=== PATIENT | male | born 1955 | race Caucasian/White ===

== ENCOUNTER 2022-07-30 16:36 | Emergency (ER) | payer MEDICARE, SELFPAY ==
[2022-07-30 17:00] VITALS: BP 152/79; PULSE 80; RESP 17; TEMP 36.9; O2SAT 97; BMI 26.8
--- NOTE | 2022-07-30 17:35 | EXP.UTC ---
Discharge Plan Disposition Patient Disposition: Home, Self-Care Condition: Good Prescriptions Prescriptions: New doxycycline hyclate 100 mg capsule 100 mg PO BID 7 Days Qty: 14 0RF fluticasone propionate [Flonase Allergy Relief] 50 mcg/actuation spray,suspension 1 spray intranasal DAILY Qty: 16 0RF Rx Instructions: administer into each nostril daily Referrals Follow up/Referrals: Karen Simeon [Primary Care Provider] - See instructions Activity Restrictions/Add. Instructions Additional Instructions/Restrictions: *Monitor Temp, Over the counter Motrin or Tylenol as directed/as needed Tylenol every 4 hours and Motrin every 6 hours (as long as your family doctor has told you that you can take it) for fever or pain. and straight to ER if unable to lower temp less than 101.0 after medication given *Warm salt water gargles may help to soothe the throat *Throat Lozenges? *Warm fluids like tea with honey may help to soothe the throat? *Sleep elevated *Humidifier/Vaporizer Take antibiotics Follow up IMMEDIATELY for new or worsening symptoms or no Noticeable improvement over the next 48-72 hours. 911 for difficulty breathing or swallowing Drink extra fluids with and between meals. If you have difficulty drinking, try very small amounts of water or suck on ice chips. ? Avoid fruit juices, as these do not replace minerals and can actually increase diarrhea. ? Children and adults can use sports drinks to replenish electrolytes. Younger children and infants should use products formulated for children, like oral rehydration solutions. ? Eat food in small amounts and let your stomach recover. ? Get lots of rest. You may feel tired or weak. ? No greasy or fried foods for the next 24-48 hours BRAT diet Bananas Rice Apples and [place] ? Make sure to drink plenty of liquids ? Return if needed ? Straight to ER if any life threatening symptoms ? Follow up with family doctor in the next 48-72 hours if no improvement or any worsening of symptoms Clinical Impressions Clinical Impression: Sinusitis Instructions Patient Instructions: DI for Sinusitis, Sinusitis, Doxycycline Discharge ED Provider: Lanie Chun [facility] General Stated complaint: Diarrhea,fever,Bodyaches,sore throat,chills Mode of Arrival: Ambulatory Source of Information: Patient Limitations: No Limitations Time Seen by Provider: 07/30/22 17:35 Description of Symptoms (Recalled from Triage Doc. by RN): PATIENT C/O DIARRHEA, COUGH, CHILLS, AND SWEATS X 5 DAYS HEENT Symptoms (Recalled from RN notes): No Resp Symptoms (Recalled from RN notes): Yes Skin Symptoms (Recalled from RN notes): No MS Symptoms (Recalled from RN notes): No Functional Status (Recalled from RN notes): WNL History of Present Illness Provider Complaint: Patient states that he has been sick for about 5 days States that he started with sinus congestion and pressure and cough States that since then his sinus congestion as got worse and he has been feeling like he is having low grade fever States then this morning he woke up with diarrhea feels like eh sweats bad when his fever breaks wanting to get tested for the flu Related Data Previous Rx's Medication Instructions Recorded doxycycline hyclate 100 mg capsule 100 mg PO BID 7 days #14 caps 07/30/22 fluticasone propionate 50 1 spray intranasal DAILY #16 grams 07/30/22 mcg/actuation nasal spray,suspension (Flonase Allergy Relief) Allergies Allergy/AdvReac Type Severity Reaction Status Date / Time No Known Allergies Allergy Verified 07/30/22 17:19 Worker's Comp Is this a Worker's Comp case?: No PFSH [facility] Disclaimer: The information contained in this section may have been updated after the patient was seen, as this information can be updated by other users. Social History Smoking Status: Unknown if ever smoked alcohol intake
[2022-07-30 17:58] VITALS: BP 152/79; PULSE 80; RESP 17; TEMP 36.9; O2SAT 97
== END 2022-07-30 18:04 | disposition home or self-care (01) ==
PROVIDERS: Emergency Provider Nurse Practitioner; PCP Emergency Medicine
DX: J01.90 Acute sinusitis, unspecified (principal); R19.7 Diarrhea, unspecified; R50.9 Fever, unspecified
CPT/HCPCS: 99204; 99212; 99214; G0463

== ENCOUNTER 2022-10-10 12:16 | Emergency (ER) | payer MEDICARE, SELFPAY ==
[2022-10-10 12:16] VITALS: BP 156/76; PULSE 69; RESP 16; TEMP 36.7; O2SAT 96; BMI 25.8
--- NOTE | 2022-10-10 12:19 | HMH.EDGENADL ---
Discharge Plan Disposition Patient Disposition: Home, Self-Care Condition: Fair Prescriptions Prescriptions: New prednisone 20 mg tablet 60 mg PO DAILY 4 Days Qty: 12 0RF cyclobenzaprine 10 mg tablet 10 mg PO TID PRN (Reason: muscle spasm) Qty: 14 0RF meloxicam 7.5 mg tablet 7.5 mg PO DAILY Qty: 14 0RF diclofenac sodium [Voltaren Arthritis Pain] 1 % gel 4 g topical QID Qty: 100 0RF Rx Instructions: apply to single knee, ankle, foot; for foot includes sole/toes/top of foot No Action clopidogrel 75 mg tablet 75 mg PO DAILY clotrimazole-betamethasone 1-0.05 % cream 1 applic topical BID Label Comments: APPLY 1 application topically to affected area 2 times per day for rash furosemide 40 mg tablet 40 mg PO DAILY Label Comments: TAKE ONE TABLET BY MOUTH DAILY FOR FLUID amitriptyline 25 mg tablet 25 mg PO HS metoprolol tartrate 50 mg tablet 50 mg PO BID Label Comments: TAKE 1 tablet 2 times per day with food pravastatin 40 mg tablet 40 mg PO HS Label Comments: TAKE ONE TABLET BY MOUTH EVERY DAY gabapentin 800 mg tablet 800 mg PO TID ranolazine 1,000 mg tablet extended release 12 hr 1,000 mg PO BID Label Comments: take 1 tablet by mouth 2 times per day nitroglycerin 0.4 mg tablet, sublingual 0.4 mg sublingual PRN hydrocodone-acetaminophen 7.5-325 mg tablet See Rx Instructions .ROUTE .COMPLEX PRN (Reason: pain) Qty: 30 0RF Rx Instructions: 1/2 po bid prn pain PRN; clobetasol [Temovate] 0.05 % ointment 1 applic topical BID Qty: 45 1RF esomeprazole magnesium 40 mg capsule,delayed release(DR/EC) 40 mg PO DAILY Qty: 90 3RF fluticasone propionate [Flonase Allergy Relief] 50 mcg/actuation spray,suspension 1 spray intranasal DAILY Qty: 16 0RF Rx Instructions: administer into each nostril daily Referrals Follow up/Referrals: Paul Hernadez [Referring] - See instructions Clinical Impressions Clinical Impression: Lumbar disc herniation with radiculopathy Instructions Patient Instructions: DI for Acute Pain -- Adult Print Language Print Language: Tunisian Discharge ED Provider: Edwardo Gonzalez General Adult HPI General Chief complaint: PAIN Stated complaint: lower back pain, R hip pain Time Seen by Provider: 10/10/22 15:28 History of Present Illness HPI narrative: Patient presents to the emergency department with right hip pain. The patient states he has a long history of low back pain. He was seen approximately a month ago at [facility] where he had a series of x-rays of his back. He states that he was discharged home. He states that over the last 2 to 3 days he has significantly worsened with inability to ambulate without excruciating pain. He states he is unable to put any pressure on his right leg. States that the pain stops at his hip. Denies any bowel or bladder loss or retention. Denies any numbness or tingling. Related Data Home Medications Medication Instructions Recorded Confirmed amitriptyline 25 mg tablet 25 mg PO HS 09/18/22 09/18/22 clopidogrel 75 mg tablet 75 mg PO DAILY 09/18/22 09/18/22 clotrimazole-betamethasone 1 1 applic topical BID 09/18/22 09/18/22 %-0.05 % topical cream furosemide 40 mg tablet 40 mg PO DAILY 09/18/22 09/18/22 gabapentin 800 mg tablet 800 mg PO TID 09/18/22 09/18/22 metoprolol tartrate 50 mg tablet 50 mg PO BID 09/18/22 09/18/22 nitroglycerin 0.4 mg sublingual 0.4 mg sublingual PRN 09/18/22 09/18/22 tablet pravastatin 40 mg tablet 40 mg PO HS 09/18/22 09/18/22 ranolazine 1,000 mg 1,000 mg PO BID 09/18/22 09/18/22 tablet,extended release,12 hr Previous Rx's Medication Instructions Recorded fluticasone propionate 50 1 spray intranasal DAILY #16 grams 07/30/22 mcg/actuation nasal spray,suspension (Flonase Allergy Relief) clobetasol 0.05 % topical ointment 1 applic topical BID #45 grams 0
--- NOTE | 2022-10-10 12:21 | PC.NURSE ---
[place] at
--- NOTE | 2022-10-10 12:24 | CT_ITS ---
FINAL REPORT TECHNIQUE: Axial imaging of the lumbar spine was obtained without contrast. Sagittal and coronal reformatted images were also obtained and reviewed.This study was performed with techniques to keep radiation doses as low as reasonably achievable (ALARA). Individualized dose reduction techniques using automated exposure control or adjustment of mA and/or kV according to the patient's size were employed. CLINICAL HISTORY: low back pain, right leg pain, unable to ambulate COMPARISON: None FINDINGS: There is no fracture. There is mild retrolisthesis of L2 on L3 and L3 on L4. There is no evidence of significant central canal stenosis. L1-2: Annular disc bulge. Vertebral osteophytes. Mild bilateral neural foraminal narrowing. L2-3: Annular disc bulge, facet arthropathy, and osteophytes. Moderate bilateral neural foraminal narrowing. L3-4: Annular disc bulge, facet arthropathy, and osteophytes. Moderate bilateral neural foraminal narrowing. L4-5: Annular disc bulge and facet arthropathy. Severe bilateral neural foraminal narrowing. Right paracentral inferiorly extruded disc. Right L5 nerve root impingement. Right lateral recess stenosis. L5-S1: Insert bulge plus severe right and moderate left neural foraminal narrowing. Left L5 pars defects. IMPRESSION: Left L5 pars defects. Right paracentral inferiorly extruded disc at L4-5 with nerve root impingement. Degenerative disc disease at other levels as described. Reviewed, Interpreted and Dictated by Compa Gaytan III, MD Transcribed by Irlanda España Authenticated and [facility]
--- NOTE | 2022-10-10 12:25 | XR_ITS ---
FINAL REPORT CLINICAL HISTORY: right hip pain COMPARISON: None FINDINGS: SINGLE VIEW PELVIS: A single view of the pelvis was obtained. There is no acute fracture or dislocation. Visualized joint spaces are normally aligned. Mild degenerative changes are noted. There are vascular calcifications. IMPRESSION: No acute bony abnormality. Reviewed, Interpreted and Dictated by Compa Gaytan III, MD Transcribed by Irlanda España Authenticated and [facility]
[2022-10-10 15:39] VITALS: BP 147/80; PULSE 74; RESP 16; TEMP 36.6; O2SAT 97
== END 2022-10-10 15:52 | disposition home or self-care (01) ==
PROVIDERS: Emergency Provider Emergency Medicine; PCP Family Medicine
DX: M51.16 Intervertebral disc disorders with radiculopathy, lumbar region (principal); M25.551 Pain in right hip; F17.210 Nicotine dependence, cigarettes, uncomplicated
CPT/HCPCS: 72131; 72170; 96372; 99284

== ENCOUNTER → 2022-11-08 17:23 | Outpatient (CLI) | payer MEDICARE, SELFPAY ==
--- NOTE | 2022-11-08 17:27 | MR_ITS ---
PROCEDURE INFORMATION: Exam: MR Lumbar Spine Without Contrast Exam date and time: 11/08/2022 5:30 PM Age: 67 years old Clinical indication: Pain; Lumbago with sciatica; Right; Additional info: Lumbar radiculopathy. Right leg pain x 4 weeks. TECHNIQUE: Imaging protocol: Magnetic resonance imaging of the lumbar spine without contrast. COMPARISON: CT LUMBAR SPINE WO CON 10/10/2022 12:47 PM FINDINGS: Bones/joints: There is preservation of vertebral alignment. Vertebral body heights are maintained. STIR hyperintensity along the posterior elements at L5, likely active degeneration. No marrow replacing process. Spinal cord: Conus medullaris and cauda equina nerve roots are unremarkable Nerves: There is a focal T2 hyperintense structure adjacent to the right neural foramen at T11-T12, favored to represent a perineural cyst. L1-L2: Diffuse disc bulge and facet arthropathy noted. No significant spinal canal stenosis. There is no significant neural foraminal narrowing. L2-L3: Diffuse disc bulge and facet arthropathy noted. There is mild spinal canal stenosis. Lateral recesses are narrowed bilaterally. There is moderate bilateral neural foraminal narrowing. L3-L4: Diffuse disc bulge and facet arthropathy noted. Lateral recesses are narrowed bilaterally. There is moderate bilateral neural foraminal narrowing. L4-L5: Diffuse disc bulge and facet arthropathy noted. There is a caudally migrated disc extrusion encroaching on traversing right L5 nerve root.There is mild spinal canal stenosis. There is severe bilateral neural foraminal narrowing. L5-S1: Diffuse disc bulge and facet arthropathy noted. No significant spinal canal stenosis. Disc bulge is likely contacting on exiting right L5 nerve root. There is moderate bilateral neural foraminal narrowing. Soft tissues: Unremarkable. IMPRESSION: Multilevel degenerative changes more pronounced at L4-L5 where there is a caudally migrated disc extrusion encroaching on traversing right L5 nerve root. Diffuse disc bulge at L5-S1 is likely contacting on exiting right L5 nerve root. Varying degrees of neural foramina narrowing more pronounced at L3-L4, L4-L5 and L5-S1 levels.
== END ==
LOC: RAD 17:23
PROVIDERS: PCP Family Medicine; Visit Provider Orthopaedic Surgery
DX: M54.50 Low back pain, unspecified (principal); M54.16 Radiculopathy, lumbar region
CPT/HCPCS: 72148; 76376

== ENCOUNTER 2022-12-07 11:15 | Emergency (ER) | payer MEDICARE, SELFPAY ==
[2022-12-07 11:19] VITALS: BP 143/96; PULSE 115; O2SAT 96
[2022-12-07 11:23] VITALS: BP 143/96; PULSE 114; RESP 16; TEMP 36.8; O2SAT 97; BMI 26.6
--- NOTE | 2022-12-07 11:28 | XR_ITS ---
FINAL REPORT CLINICAL HISTORY: injury FINDINGS: 3 views of the right shoulder were obtained. There is no prior exam for comparison. There is no fracture or dislocation. There is degenerative joint disease. The humeral head is high riding, a rotator cuff tear is not excluded. Soft tissues are normal. IMPRESSION: No acute osseous abnormality of the right shoulder. High riding humeral head, rotator cuff tear is not excluded. Consider MRI. Reviewed, Interpreted and Dictated by Laure Bah MD Transcribed by Alan Abraham Authenticated and [facility]
[2022-12-07 11:30] VITALS: BP 131/95; PULSE 111; O2SAT 96
[2022-12-07 12:00] VITALS: BP 122/89; PULSE 115; O2SAT 95
[2022-12-07 12:11] VITALS: BP 122/80; PULSE 109; O2SAT 94
[2022-12-07 12:13] VITALS: BP 122/80; PULSE 109; RESP 18; TEMP 36.7; O2SAT 95
--- NOTE | 2022-12-07 15:46 | HMH.EDGENADL ---
Discharge Plan Disposition Patient Disposition: Home, Self-Care Prescriptions Prescriptions: No Action clopidogrel 75 mg tablet 75 mg PO DAILY clotrimazole-betamethasone 1-0.05 % cream 1 applic topical BID Patient Comments: APPLY 1 application topically to affected area 2 times per day for rash amitriptyline 25 mg tablet 25 mg PO HS pravastatin 40 mg tablet 40 mg PO HS Patient Comments: TAKE ONE TABLET BY MOUTH EVERY DAY ranolazine 1,000 mg tablet extended release 12 hr 1,000 mg PO BID Patient Comments: take 1 tablet by mouth 2 times per day nitroglycerin 0.4 mg tablet, sublingual 0.4 mg sublingual PRN clobetasol [Temovate] 0.05 % ointment 1 applic topical BID Qty: 45 1RF methylprednisolone [Medrol (Jace)] 4 mg tablets,dose pack See Rx Instructions PO PER PKG DIR Qty: 21 0RF Rx Instructions: PO PER PKG DIR oxycodone-acetaminophen [Percocet] 5-325 mg tablet 1 tab PO Q8H PRN (Reason: pain) Qty: 45 0RF esomeprazole magnesium 40 mg capsule,delayed release(DR/EC) 40 mg PO DAILY Qty: 90 3RF furosemide 40 mg tablet See Rx Instructions .ROUTE .COMPLEX Qty: 90 1RF Dose Instruction: TAKE ONE TABLET BY MOUTH DAILY FOR FLUID Rx Instructions: TAKE ONE TABLET BY MOUTH DAILY FOR FLUID gabapentin 800 mg tablet 800 mg PO TID PRN (Reason: pain) Qty: 90 0RF hydrocodone-acetaminophen 7.5-325 mg tablet 1 tab PO Q8H PRN (Reason: pain) Qty: 60 0RF metoprolol tartrate 50 mg tablet 50 mg PO BID Qty: 60 0RF fluticasone propionate [Flonase Allergy Relief] 50 mcg/actuation spray,suspension 1 spray intranasal DAILY Qty: 16 0RF Rx Instructions: administer into each nostril daily cyclobenzaprine 10 mg tablet 10 mg PO TID PRN (Reason: muscle spasm) Qty: 14 0RF diclofenac sodium [Voltaren Arthritis Pain] 1 % gel 4 g topical QID Qty: 100 0RF Rx Instructions: apply to single knee, ankle, foot; for foot includes sole/toes/top of foot Referrals Follow up/Referrals: Gonzalo Elaine DO [Staff Physician] - See instructions (next available for outpatient MRI ) Dex Garza MD [Primary Care Provider] - See instructions Activity Restrictions/Add. Instructions Additional Instructions/Restrictions: Your x-ray today did not demonstrate any fracture or dislocation but was consistent with arthritis. Your exam is concerning for a rotaor cuff injury. I recommend an outpatient MRI please follow-up with your orthopedic surgeon or with Dr. Elaine to facilitate this. Continue take your pain medicine that you are currently taking for your back pain. Additionally may ice the area. Clinical Impressions Clinical Impression: Right shoulder strain, Arthritis of shoulder Discharge ED Provider: Leodan Dupree General Adult HPI General Chief complaint: Extremity Injury, Upper Stated complaint: RT shoulder pain Time Seen by Provider: 12/07/22 12:02 Mode of Arrival: Ambulatory Source of Information: Patient Limitations: No Limitations Description of Symptoms (Recalled from ER Triage Doc. by RN): Presents via POV d/t right shoulder injury while attempting to tighten his belt on Saturday. Pt further reports he heard a pop with immediate pain and limited ROM. Hx of rotator cuff tear x 7 yrs ago without intervention. +Lortab 7.5mg TID (prescribed by Dr. Garza for acute back pain due to pinched nerve with upcoming scheduled surgery Dec 3) History of Present Illness HPI narrative: Patient is a 67-year-old male who sustained a right shoulder injury while attempting to tighten his belt. He heard a pop in his right shoulder. No other significant injuries. Related Data Home Medications Medication Instructions Recorded Confirmed amitriptyline 25 mg tablet 25 mg PO HS 09/18/22 11/08/22 clopidogrel 75 mg tablet 75 mg PO DAILY 09/18/22 11/08/22 clotrimazole-betamethasone 1 1 applic topical BID 09/18/22 11/08/22 %-0.05 % topical cre
== END 2022-12-07 12:17 | disposition home or self-care (01) ==
PROVIDERS: Emergency Provider Student in an Organized Health Care Education/Training Program; PCP Family Medicine
DX: S46.011A Strain of muscle(s) and tendon(s) of the rotator cuff of right shoulder, initial encounter (principal); M19.011 Primary osteoarthritis, right shoulder; I10 Essential (primary) hypertension; E78.5 Hyperlipidemia, unspecified; I25.2 Old myocardial infarction; K21.9 Gastro-esophageal reflux disease without esophagitis; X50.9XXA Other and unspecified overexertion or strenuous movements or postures, initial encounter
CPT/HCPCS: 73030; 99283

== ENCOUNTER → 2022-12-17 11:30 | Outpatient (CLI) | payer MEDICARE, SELFPAY ==
--- NOTE | 2022-12-17 11:30 | NM_ITS ---
APPROVED REPORT Exam: Nuclear Stress Test Indication: CAD, 4 STENTS, H/O MT, HTN, HYPERLIPIDEMIA, TOB USE, SOB, FATIGUE Patient Location: Outpatient Stress Tech: Heidy Poole [place] Tech:TOD Barr RT (R)(N)(M) Ht: 5 ft 10 in Wt: 170 lbs HR: 68 bpm BP: 144/82 mmHg BSA: 1.95 m2 Rhythm: NSR TID: 1.10 BMI: 24.3 History: CAD, 4 STENTS, H/O MT, HTN, HYPERLIPIDEMIA, TOB USE, SOB, FATIGUE Procedure: Patient received 0.4 mg of intravenous Lexiscan, resting heart rate 68 bpm, resting blood pressure 144/82 mmHg, with Lexiscan maximum heart rate achieved was 87 bpm which is % of the maximum predicted heart rate and blood pressure was 124/75 mmHg. With Lexiscan, patient denied any complaint of chest pain. Cardiac Stress and Resting SPECT Images: Cardiac Stress and Resting SPECT images were obtained using technetium 99m Myoview 31.5 mCi stress and 10.07 mCi at rest. Resting and stress perfusion imaging in both supine and prone positions demonstrate a large sized, severe, fixed perfusion defect in the distal anterior, septal, and entire inferior and inferoseptal LV wall. There is also severe fixed perfusion defect in the apical LV wall. Gated imaging demonstrates mild reduction in global LV systolic function. There is moderate hypokinesis in the distal anterior, septal, and basal to mid inferior LV teran. There is akinesis of the apical wall. LVEF is calculated at 42%. Conclusion: Resting and stress perfusion imaging in both supine and prone positions demonstrate a large sized, severe, fixed perfusion defect in the distal anterior, septal, and entire inferior and inferoseptal LV wall. There is also severe fixed perfusion defect in the apical LV wall. No evidence of reversible ischemia. Gated imaging demonstrates mild reduction in global LV systolic function. There is moderate hypokinesis in the distal anterior, septal, and basal to mid inferior LV teran. There is akinesis of the apical wall. LVEF is calculated at 42%. Electronically signed by : Natalia Verma, 12/18/2022 20:25:42
--- NOTE | 2022-12-17 14:21 | CA_ITS ---
APPROVED REPORT Exam: Pharmacologic Technologist: Heidy Poole Ht: 5 ft 9 in Wt: 170 lbs BSA: 1.93 m2 HR: 68 bpm BP: 144/82 mmHg Rhythm: NSR Indications: Chest pain, Shortness of Air Medical History Medications: Gabapentin,,,,, Metoprolol Tartrate,,,,, Flonase,,,,, PERCOCET,,,,, CloPIdogrel,,,,, Diclofenac,,,,, AmiTRIPTYLINE,,,,, Esomeprazole,,,,, Cyclobenzaprine,,,,, Nitroglycerin,,,,, Ranolazine,,,,, Hydrocodone-Acetaminophen,,,,, Stress Test Details Test: LEXISCAN HR Resting HR: 72 bpm Max Heart Rate (APMHR): 151 bpm Max HR Achieved: 88 bpm Target HR (85% APMHR): 128 bpm % of APMHR: 58 Recovery HR: 83 bpm BP Resting BP: 144.0/82.0 mmHg Max BP: 144.0/82.0 mmHg Recovery BP: 144.0/78.0 mmHg ECG Resting ECG: Normal sinus rhythm, old septal WA Stress ECG: No change Arrhythmia: None Recovery ECG: No change Recovery Arrhythmia: None Clinical Exercise duration: 04:00 min Highest Stage Achieved: Stress ECG Conclusion Symptoms: Mild stomach discomfort. Arrhythmias/Ectiopy: None ST-T Changes: No significant changes. Conclusion: Unremarkable Lexiscan stress. Myoview images reported separately. Test Summary REST . . . . . . . Resting REST 05:28 . . 72 . 144/ 82 . . Stage 1 . . . . . . . Myoview Injected Stage 1 01:00 . . 76 . . . . Stage 2 01:00 . . 87 . 124/ 75 . . Stage 3 01:00 . . 85 . 143/ 79 . . Stage 4 01:00 . . 84 . 138/ 81 . Stop exercise at 04:00 RECOVERY 01:00 . . 84 . 140/ 80 . . RECOVERY 02:00 . . 83 . 138/ 81 . . RECOVERY 03:00 . . 80 . 144/ 78 . . RECOVERY 03:15 . . 82 . 144/ 78 . . Electronically signed by : Natalia Verma, 12/18/2022 20:21:00
== END ==
LOC: RAD 11:30
PROVIDERS: PCP Family Medicine; Visit Provider Internal Medicine
DX: I10 Essential (primary) hypertension (principal); I25.10 Atherosclerotic heart disease of native coronary artery without angina pectoris; R94.31 Abnormal electrocardiogram [ECG] [EKG]; Z95.5 Presence of coronary angioplasty implant and graft
CPT/HCPCS: 78452; 93017; A9502; J2785

== ENCOUNTER → 2022-12-31 08:05 | Outpatient (CLI) | payer MEDICARE, SELFPAY ==
--- NOTE | 2022-12-31 08:08 | CA_ITS ---
FINAL REPORT TECHNIQUE: Grayscale, color Doppler and duplex Doppler ultrasound of the kidneys, aorta and renal arteries was performed. Multiple velocities were measured. CLINICAL HISTORY: HTN,SMOKER COMPARISON: None FINDINGS: Aorta velocity: 93 cm/sec Right kidney: 10.0 cm. No evidence of hydronephrosis or mass. Right intrarenal RI: 0.53-0.68 Right renal artery velocity: 159 cm/sec. Right RAR (Renal artery-Aortic Ratio): 1.71 Left Kidney: 11.5 cm. No evidence of hydronephrosis or mass. Left intrarenal RI: 0.61-0.67 Left renal artery velocity: 168 cm/sec. Left RAR (Renal Artery-Aortic Ratio): 1.81 IMPRESSION: No evidence of significant renal artery stenosis. CT angiogram or postcontrast MR angiogram would be more sensitive for evaluation of possible renal artery stenosis. Reviewed, Interpreted and Dictated by Compa Gaytan III, MD Transcribed by Irlanda España Authenticated and . [facility]
--- NOTE | 2022-12-31 08:43 | US_ITS ---
FINAL REPORT TECHNIQUE: Ultrasound images of the kidneys and bladder were obtained. CLINICAL HISTORY: .hypertension COMPARISON: None FINDINGS: The right kidney measures 8.3 cm in length. It is normal in echogenicity. There is a 1.8 cm probable cyst in the mid right kidney. There are several small echogenic foci that may represent right renal stones as well. There is no hydronephrosis. The left kidney measures 11 cm in length. It is normal in echogenicity. There is no hydronephrosis. IMPRESSION: 1.8 cm probable cyst in the right mid kidney. There are several small echogenic foci that may represent small right renal stones as well. No evidence of hydronephrosis is seen. Would recommend CT using renal stone protocol for further evaluation. Unremarkable left kidney. Reviewed, Interpreted and Dictated by Compa Gaytan III, MD Transcribed by Milagros Busch Authenticated and . [facility]
== END ==
PROVIDERS: PCP Family Medicine; Visit Provider Internal Medicine
DX: I10 Essential (primary) hypertension (principal); I25.10 Atherosclerotic heart disease of native coronary artery without angina pectoris; R94.31 Abnormal electrocardiogram [ECG] [EKG]; Z95.5 Presence of coronary angioplasty implant and graft
CPT/HCPCS: 76770; 93976

== ENCOUNTER → 2023-01-09 11:14 | Outpatient (CLI) | payer MEDICARE, SELFPAY ==
--- NOTE | 2023-01-09 11:14 | MR_ITS ---
FINAL REPORT CLINICAL HISTORY: right shoulder pain COMPARISON: None FINDINGS: Multi planar MR imaging of the right shoulder was performed. There is complete disruption and proximal retraction of the distal supraspinatus tendon, approximately 3.9 cm. The humeral head is slightly elevated in the joint space. There is heterogeneous thickening of the distal subscapularis tendon, compatible with tendinosis. There is fluid in the subacromial/subdeltoid bursa. The anterior and posterior glenoid winsome appear intact. There is mild thinning of the long head of the biceps tendon as well as medial subluxation. There is marked heterotrophic change of the acromioclavicular joint. IMPRESSION: Complete tear and proximal retraction of the distal supraspinatus tendon as described. There is also tendinosis of the distal subscapularis tendon. Marked heterotrophic change of the acromioclavicular joint. There is mild thinning and medial subluxation of the long head of the biceps tendon. Reviewed, Interpreted and Dictated by Lamin Posada MD Transcribed by Milagros Busch Authenticated and [facility]
== END ==
LOC: RAD 11:14
PROVIDERS: PCP Family Medicine; Visit Provider Orthopaedic Surgery
DX: S46.911A Strain of unspecified muscle, fascia and tendon at shoulder and upper arm level, right arm, initial encounter (principal); M25.511 Pain in right shoulder; M75.121 Complete rotator cuff tear or rupture of right shoulder, not specified as traumatic
CPT/HCPCS: 73221

== ENCOUNTER → 2023-02-14 23:14 | Outpatient (CLI) | payer MEDICARE, SELFPAY ==
[2023-02-14 18:45] LABS: Basophils % 0.2 % (0.1-2.0); Eosinophils # 0.1 K/mm3 (0.0-0.4); Eosinophils % 1.1 % (0.1-12.0); Hematocrit 46.8 % (42.0-52.0); Hemoglobin 15.1 g/dL (14.1-18.0); Mean Corpuscular HGB Conc 32.3 g/dL (31.8-35.4); Mean Corpuscular Hemoglobin 33.6 pg (27.0-31.2); Mean Platelet Volume 8.2 fl (7.4-10.4); Monocytes # 0.5 K/mm3 (0.1-1.0); Monocytes % 6.1 % (1.7-9.3); Neutrophils # 5.9 K/mm3 (1.8-7.8); Neutrophils % 69.6 % (37.0-80.0); Platelet Count 237 K/mm3 (142-424); Red Cell Distribution Width 14.4 % (11.5-17.5); White Blood Count 8.5 K/mm3 (4.8-10.8)
[2023-02-14 18:51] LABS: Alanine Aminotransferase 12 U/L (12-78); Albumin Level 4.1 g/dl (3.5-5.0); Albumin/Globulin Ratio 1.6 (1.1-1.8); Alkaline Phosphatase 110 U/L (38-126); Anion Gap 12.4 mEq/L (5-15); Aspartate Amino Transferase 21 U/L (17-59); Bilirubin,Total 0.4 mg/dl (0.2-1.3); Blood Urea Nitrogen 11 mg/dl (9-20); Calcium 9.2 mg/dl (8.4-10.2); Carbon Dioxide 30 mmol/L (22.0-30.0); Chloride 104 mmol/L (98-107); Chol/HDL Ratio 3.9 (1-3.5); Cholesterol 168 mg/dl (140-200); Estimated Glomerular Filt Rate 112 ml/min (>60); GFR (African American) 135 ML/MIN (>60); Globulin 2.5 g/dL (1.3-3.2); Glucose 78 mg/dl (74-100); HDL Cholesterol 43 mg/dl (40-60); Potassium 3.4 mmoL/L (3.5-5.1); Sodium 143 mmol/L (136-145); Total Protein,Serum 6.6 g/dl (6.3-8.2); Triglycerides 132 mg/dl (30-150); VLDL Cholesterol 26 mg/dL (0-40)
[2023-02-14 19:04] LABS: Direct LDL Cholesterol 100.38 mg/dL (100-129)
[2023-02-14 19:10] LABS: T4 (Thyroxine) 8.7 ug/dl (5.53-11.0)
[2023-02-14 19:24] LABS: Prostate Specific Ag Screen 0.5 ng/ml (0.0-4.0); Thyroid Stimulating Hormone 1.25 uIU/mL (0.465-4.68)
== END ==
PROVIDERS: PCP Family Medicine; Visit Provider Family Medicine
DX: I10 Essential (primary) hypertension (principal); I25.10 Atherosclerotic heart disease of native coronary artery without angina pectoris; Z12.5 Encounter for screening for malignant neoplasm of prostate; J32.9 Chronic sinusitis, unspecified; E07.9 Disorder of thyroid, unspecified
CPT/HCPCS: 80053; 80061; 84436; 84443; 85025; G0103

== ENCOUNTER → 2023-02-19 15:39 | Outpatient (CLI) | payer MEDICARE, SELFPAY | LOC: RT 15:40 | PROVIDERS: PCP Family Medicine; Visit Provider Nurse Practitioner | DX: R00.2 Palpitations (principal); I25.10 Atherosclerotic heart disease of native coronary artery without angina pectoris; I10 Essential (primary) hypertension; Z95.5 Presence of coronary angioplasty implant and graft; R94.31 Abnormal electrocardiogram [ECG] [EKG]; Z72.0 Tobacco use | CPT/HCPCS: 93225 ==

== ENCOUNTER → 2023-04-09 13:30 | Outpatient (CLI) | payer MEDICARE, SELFPAY ==
--- NOTE | 2023-04-09 13:34 | CA_ITS ---
APPROVED REPORT EXAM: Comprehensive 2D, Doppler, and color-flow Echocardiogram Cloth Printer: Mady Barney, LO, RVS Ht: 5 ft 9 in Wt: 177lbs BSA: 1.96 BP: 150/84 mmHg Indications: SA, CAD hx- coronary stents with previous RI, COPD, Smoker, HTN, Edema, Abn ekg 2D Dimensions IVSd 1.17 cm LVEF (Visual) 62.20 % PWd 1.25 cm LA Volume 29.40 mL LVDd 5.15 cm LA Volume Index 14.60 mL/m2 (M/F) 16-34 LVDs 3.41 cm Aortic Root 3.39 cm Left Atrium 3.14 cm LVOT 2.24 cm (M/F) 1.5-2.5 M-Mode Dimensions LA Diam 4.48 cm (1.9-4.0) Ao Diam 3.27 cm (2.0-3.7) EPSs 1.29 cm TAPSE 2.10 (<1.7) LV Diastology E Decel Time 273.00 (160-240 msec) E/A Ratio 0.70 MED E' 6.70 (< 7 cm/sec) MED A' 9.20 cm/s E'/MED E' Ratio 10.99 (>14) LAT E' 8.00 (<10 cm/sec) LAT A' 10.20 cm/s E/LAT E' Ratio 9.20 (>14) Aortic Valve LVOT Max 102.00 (70-110 cm/s) LVOT VTI 20.23 cm AoV Peak Gabriel. 126.00 (50-130 cm/s) AO Peak GR. 6.30 mmHg AO Mean GR. 3.70 (<5 mmHg) AO VTI 27.74 (18-25 cm) CLIFF (VTI) 2.87 (2.5-4.5 cm2) Mitral Valve MV A Velocity 105.00 (40-130 cm/s) E/A Ratio 0.70 MV Decel. Time 273.00 (160-240 ms) MV Mean Gr. 1.80 (<2mmHg) Pulmonary Valve CO End VMAX 216.00 cm/s Tricuspid Valve TR P. Velocity 293.00 cm/s RAP Estimate 10.00 mmHg RVSP 44.30 mmHg Left Ventricle The left ventricle is normal size. The left ventricular systolic function is mildly reduced. There is normal left ventricular wall thickness. The is severe hypokinesis of the distal septal and the apical LV teran. There is grade 1 diastolic dysfunction. LVEF is 45%. Right Ventricle The right ventricle is normal size. The right ventricular systolic function is normal. Atria The left atrium size is normal. The right atrium size is normal. There is no Doppler evidence of interatrial shunt. Aortic Valve The aortic valve opens well. There is no aortic valvular stenosis. Trace aortic regurgitation. Mitral Valve The mitral valve leaflets are mildly thickened. Mild mitral regurgitation. Tricuspid Valve The tricuspid valve leaflets are thin and pliable. Mild tricuspid regurgitation. RVSP is 30-35 mmHg. Pulmonic Valve The pulmonary valve is normal in structure. Trace pulmonic regurgitation. Great Vessels The aortic root is normal in size. The ascending aorta is normal in size. IVC is normal in size and collapses >50% with inspiration. Pericardium There is no pericardial effusion. Other Information Study Quality: Fair Conclusion Mildly reduced LV systolic function (LVEF 45%). Severe hypokinesis of the distal septal and the apical LV teran. Mild MR, mild TR. RVSP 30-35 mmHg. Electronically signed by : Natalia Verma MD 04/19/2023 18:11:04
--- NOTE | 2023-04-09 14:15 | CT_ITS ---
FINAL REPORT TECHNIQUE: Axial images through the abdomen and pelvis were performed without contrast. This study was performed with techniques to keep radiation doses as low as reasonably achievable, (ALARA). Individualized dose reduction techniques using automated exposure control or adjustment of mA and/or kV according to the patient's size were employed. CLINICAL HISTORY: kidney stone, abd pain/swelling on right side FINDINGS: ABDOMEN: There is a moderate hiatal hernia. There is a 3 mm right lower lobe nodule, likely benign. Several calcified granulomas are identified. The heart size is normal. Limited images of the liver are unremarkable. There are multiple gallstones. The spleen is normal. No adrenal mass is identified. The aorta is normal in caliber. There is no significant free fluid or adenopathy. There is no nephrolithiasis. There is no hydronephrosis. There is a mass in the mid right kidney measuring 18 mm, favor cyst. Moderate vascular calcification is identified. PELVIS: There are moderate sigmoid diverticula. The appendix is mildly dilated measuring 8 mm but without adjacent inflammation. There is no convincing appendicitis. There is bladder wall thickening, likely inflammatory. There is no significant free fluid or adenopathy. Note is made of left L5 pars defect. IMPRESSION: Moderate hiatal hernia. Cholelithiasis. Mildly dilated appendix but without adjacent inflammation. If symptoms persist or worsen, consider follow-up CT. Reviewed, Interpreted and Dictated by Compa Gaytan III, MD Transcribed by Myla Gonzales Authenticated and [facility]
== END ==
PROVIDERS: PCP Family Medicine; Visit Provider Nurse Practitioner
DX: I25.10 Atherosclerotic heart disease of native coronary artery without angina pectoris (principal); I11.9 Hypertensive heart disease without heart failure; N20.0 Calculus of kidney; R94.31 Abnormal electrocardiogram [ECG] [EKG]; Z95.5 Presence of coronary angioplasty implant and graft
CPT/HCPCS: 74176; 93306

== ENCOUNTER 2023-05-24 09:24 | Outpatient (CLI) | payer MEDICARE, SELFPAY ==
[2023-05-24 23:17] LABS: Amphetamine/Metha Screen,Urine Negative ng/ml (<1000); Barbiturates Screen,Urine Negative ng/ml (<200); Benzodiazepines Screen,Urine Negative ng/ml (<200); Cannabinoid Screen,Urine Negative ng/ml (<50); Cocaine Screen,Urine Negative ng/ml (<300); Methadone Screen,Urine Negative ng/ml (<300); Opiate Screen,Urine Positive ng/ml (<300); Phencyclidine Screen,Urine Negative ng/ml (<25)
== END 2023-05-24 23:59 ==
LOC: LAB.DROPOF 05-25 09:26
PROVIDERS: PCP Family Medicine; Visit Provider Family Medicine
DX: Z79.899 Other long term (current) drug therapy (principal)
CPT/HCPCS: 80307

== ENCOUNTER 2023-05-30 08:30 | Day surgery (SDC) | payer MEDICARE, SELFPAY ==
[2023-05-30] VITALS (15 sets, daily range): BP systolic 112–194; BP diastolic 58–110; PULSE 52–60; RESP 15–17; TEMP 36.9; O2SAT 90–99; BMI 25.2
--- NOTE | 2023-05-30 07:08 | IR_ITS ---
APPROVED REPORT Patient Location: Outpatient Refractory Bricklayer: TOD Marroquin RT (R) PROCEDURES Selective coronary angiogram Drug-eluting stent deployment to the proximal dominant right coronary artery Drug-eluting stent deployment to the posterior descending artery Intravascular lithotripsy to the proximal LAD Drug-eluting stent deployment to the proximal and mid LAD Drug-eluting stent deployment to the ostial proximal and mid large diagonal artery INDICATION Coronary artery disease, Ischemic cardiomyopathy with reduced ejection fraction, Angina pectoris, Informed consent was obtained prior to the procedure. COMPLICATIONS NONE Estimated Blood Loss: LESS THAN 10 ML TECHNIQUE One percent lidocaine used to anesthetize the right anterior aspect of the wrist. The right radial artery was accessed via the Seldinger technique. A 6 [place] sheath was placed in the right radial artery. 2.5 mg of Verapamil, 800 mcg of nitroglycerin, 1mg Lidocaine and 5000 U Heparin were given through the arterial sheath. The papa catheter was also used to perform selective coronary angiogram. At the end of the diagnostic angiogram I broke scrub and then spoke to the family members regarding revascularization approach. informed me patient was not going to be agreeable to bypass surgery and has extensive lung disease and is an ongoing smoker. I did agree with this and felt patient would not be a good surgical candidate based on COPD. At this point it was decided to proceed with percutaneous revascularization. Therapeutic heparin was administered and a therapeutic ACT was achieved. The guide catheter was placed in the right coronary followed by Choice PT extra-support wire distally. A 4.5 x 30 mm [place] frontier stent was deployed at 20 sandie in the proximal vessel reducing the severe calcified mostly eccentric stenosis to 0%. ZEENAT-3 flow was present before and after the procedure. Following this a 3 mm x 22 mm [place] frontier stent was placed into the large posterior descending artery and deployed at 20 sandie reducing the severe stenosis to 0%. ZEENAT-3 flow was present before and after the procedure. Following this the guide catheter was placed in the left main artery followed by Choice PT extra-support wire placed down the LAD. A 3.5 x 12 mm intravascular lithotripsy balloon was advanced and 120 pulsations were delivered at 4, 6, 8 sandie. Following this a 3.5 x 26 mm [place] frontier stent was placed in the ostial LAD extending distal to the large first diagonal artery and deployed at 24 sandie reducing the critical stenosis to 0%. Following this a Choice PT extra-support wire was placed in the first diagonal artery and a 2.0 noncompliant balloon was used to open the struts going into the diagonal artery. A 2.25 x 26 mm [place] frontier stent was deployed in the ostial diagonal artery extending into the midportion at 20 sandie. An additional 2.25 x 12 mm [place] frontier stent was placed distal to the for stent yet still overlapping it and deployed at 18 sandie. The balloon was brought back and deployed at 24 sandie to post dilate. The balloon was also brought back into the ostium and deployed at 24 sandie to post dilate the ostium. Following this a guide liner was advanced and a 2 mm balloon was used to push the LAD struts from the diagonal artery out of the LAD. Following the 2 mm balloon deployment a 3.5 x 12 mm noncompliant balloon was advanced into the proximal and mid LAD dilating and making sure all struts from the diagonal artery were out of the left main proper. Excellent angiographic results were obtained with ZEENAT-3 flow being present before and after the procedure. There was an initial attempt to revascularize the ramus intermedius however with further angiographic evaluation it was decided not to revascularize the vessel. The end of the procedure the apparatus was removed the sheath was removed and hemostasis was achieved using TR banding patient transferred to the postop holding in stable condition ANGIOGRAPHIC RESULTS The left main artery Has a distal 20 to 30% stenosis. The left anterior descending artery Has an ostial 70 to 80% stenosis followed by a complex calcified proximal LAD immediately adjacent to a large first diagonal artery. The remaining vessel is large and widely patent. The first diagonal artery has a proximal 80 to 90% and mid vessel 50 to 60% stenosis. The circumflex artery Gives rise to a moderate ramus intermedius which has a proximal 50% stenosis. The circumflex artery itself is large and has proximal 20 and 30% stenosis. The large second diagonal artery has a mid vessel 40% stenosis The right coronary artery Is a large dominant vessel and has proximal eccentric 30% stenosis with a high-grade hazy calcific wedge like stenosis creating a 70 to 80% stenosis. There is additional 30 and 40% mid vessel stenoses with a distal eccentric 50% stenosis. A large posterior descending artery has 70 to 80% concentric in-stent restenosis in the midportion The [place] ventriculogram reveals Not performed The left ventricular end-diastolic pressure Not measured IMPRESSION Severe to critical ostial and proximal LAD disease as described above Successful intravascular lithotripsy of the proximal LAD followed by drug-eluting stenting of the ostial and proximal LAD reducing critical disease to 0% Successful bifurcating stenting of the large first diagonal artery severe disease reduced to 0% with 2 contiguous drug-eluting stents Severe focal calcified wedge stenosis in the proximal dominant right coronary artery reducing the stenosis to 0% with 1 drug-eluting stent Severe stenosis in the large posterior descending artery with successful stenting reducing the stenosis to 0% with 1 drug-eluting stent PLAN 1. Dual antiplatelet therapy 2. Recommend admission overnight. Patient received copious contrast and had a complex procedure. IV fluids should be given with supportive care and monitoring. Chemistry panel to be checked in the morning 3. Avoidance of tobacco products 4. Risk factor modification 5. Cardiac rehabilitation Electronically signed by : Aba Lund MD 05/30/2023 11:16:07
[2023-05-30 09:09] LABS: Basophils # 0.1 K/mm3 (0-0.2); Basophils % 0.6 % (0.1-2.0); Eosinophils # 0.1 K/mm3 (0.0-0.4); Eosinophils % 1.3 % (0.1-12.0); Hematocrit 49.2 % (42.0-52.0); Hemoglobin 16.2 g/dL (14.1-18.0); Lymphocytes # 2.4 K/mm3 (0.7-4.5); Mean Corpuscular HGB Conc 32.9 g/dL (31.8-35.4); Mean Corpuscular Hemoglobin 33.6 pg (27.0-31.2); Mean Corpuscular Volume 102.3 fl (80-94); Mean Platelet Volume 7.8 fl (7.4-10.4); Monocytes # 0.5 K/mm3 (0.1-1.0); Monocytes % 6.1 % (1.7-9.3); Neutrophils # 5.2 K/mm3 (1.8-7.8); Neutrophils % 63.1 % (37.0-80.0); Platelet Count 217 K/mm3 (142-424); Red Blood Count 4.81 M/mm3 (4.60-6.20); White Blood Count 8.3 K/mm3 (4.8-10.8)
[2023-05-30 09:18] LABS: Chloride 106 mmol/L (98-107); Potassium 3.7 mmoL/L (3.5-5.1); Sodium 142 mmol/L (136-145)
[2023-05-30 09:21] LABS: Blood Urea Nitrogen 12 mg/dl (9-20); Creatinine Clearance Estimated 75 mL/min (50-200); Estimated Glomerular Filt Rate 111 ml/min (>60); GFR (African American) 135 ML/MIN (>60)
[2023-05-30 09:22] LABS: Anion Gap 8.7 mEq/L (5-15); Calcium 8.9 mg/dl (8.4-10.2); Carbon Dioxide 31 mmol/L (22.0-30.0); Glucose 97 mg/dl (74-100)
[2023-05-30] MEDS: 0.9 % SODIUM CHLORIDE 500 ML 25 ML IV (09:44)
[2023-05-30] MEDS: LIDOCAINE 1% 10ML MDV 20 ML IJ (09:44)
[2023-05-30] MEDS: HEPARIN 1,000 UNITS/500ML NS (CATH LAB) 3000 UNIT IV (09:44)
[2023-05-30] MEDS: HEPARIN 1,000 UNITS/ML 10ML VIAL (CATH LAB) 10000 UNIT IV (09:44)
[2023-05-30] MEDS: NITROGLYCERIN 800MCG/8ML SYR (CATH LAB) 800 MCG IA (09:45)
[2023-05-30] MEDS: VERAPAMIL 2.5MG/ML 2ML VIAL 2.5 MG IV (09:45)
[2023-05-30] MEDS: diphenhydrAMINE 50MG/ML VIAL 50 MG IV (09:46)
[2023-05-30] MEDS: FENTANYL 100MCG/2ML VIAL 50 MCG IV (09:54)
[2023-05-30] MEDS: MIDAZOLAM HCL 1MG/1ML 5ML VIAL 1 MG IV (09:55)
[2023-05-30] MEDS: IOPAMIDOL-370 (76%);100ML BOTTLE 205 ML IV (11:35)
[2023-05-30] MEDS: ASPIRIN 325MG TABLET 325 MG PO (12:40)
[2023-05-30 15:43] LABS: CATHL Activated Clotting Time 261 SEC (74-125)
[2023-05-30 15:44] LABS: CATHL Activated Clotting Time > 400 SEC (74-125)
== END 2023-05-30 14:25 | disposition home or self-care (01) ==
PROVIDERS: PCP Family Medicine; Visit Provider Internal Medicine
DX: I10 Essential (primary) hypertension (principal); R00.2 Palpitations; R06.00 Dyspnea, unspecified; R60.9 Edema, unspecified; R94.31 Abnormal electrocardiogram [ECG] [EKG]; Z95.5 Presence of coronary angioplasty implant and graft; I25.118 Atherosclerotic heart disease of native coronary artery with other forms of angina pectoris; Z79.899 Other long term (current) drug therapy; I25.5 Ischemic cardiomyopathy
CPT/HCPCS: 80048; 85025; 85347; 92928; 92929; 92972; 99152; 99153; C1725; C1761; C1769; C1876; C9600; C9601; J1644; Q9967

== ENCOUNTER 2023-06-10 10:23 | Outpatient (CLI) | payer MEDICARE, SELFPAY ==
[2023-06-10 10:53] LABS: Basophils % 0.5 % (0.1-2.0); Eosinophils # 0.1 K/mm3 (0.0-0.4); Eosinophils % 1.2 % (0.1-12.0); Hematocrit 45.8 % (42.0-52.0); Hemoglobin 14.9 g/dL (14.1-18.0); Lymphocytes % 30.9 % (10-50); Mean Corpuscular HGB Conc 32.5 g/dL (31.8-35.4); Mean Corpuscular Hemoglobin 33.3 pg (27.0-31.2); Mean Corpuscular Volume 102.4 fl (80-94); Monocytes # 0.4 K/mm3 (0.1-1.0); Monocytes % 6.1 % (1.7-9.3); Neutrophils # 3.9 K/mm3 (1.8-7.8); Neutrophils % 61.3 % (37.0-80.0); Platelet Count 209 K/mm3 (142-424); Red Blood Count 4.47 M/mm3 (4.60-6.20); Red Cell Distribution Width 14.1 % (11.5-17.5); White Blood Count 6.3 K/mm3 (4.8-10.8)
[2023-06-10 11:21] LABS: Chloride 103 mmol/L (98-107)
[2023-06-10 11:22] LABS: Potassium 4.4 mmoL/L (3.5-5.1); Sodium 138 mmol/L (136-145)
[2023-06-10 11:24] LABS: Alanine Aminotransferase 15 U/L (12-78); Alkaline Phosphatase 96 U/L (38-126); Anion Gap 9.4 mEq/L (5-15); Aspartate Amino Transferase 21 U/L (17-59); Bilirubin,Direct 0.5 mg/dl (0.0-0.4); Bilirubin,Total 0.5 mg/dl (0.2-1.3); Blood Urea Nitrogen 11 mg/dl (9-20); Carbon Dioxide 30 mmol/L (22.0-30.0); Cholesterol 177 mg/dl (140-200); Estimated Glomerular Filt Rate 111 ml/min (>60); GFR (African American) 135 ML/MIN (>60); Triglycerides 146 mg/dl (30-150); VLDL Cholesterol 29 mg/dL (0-40)
[2023-06-10 11:25] LABS: Albumin Level 3.9 g/dl (3.5-5.0); Calcium 8.9 mg/dl (8.4-10.2); Chol/HDL Ratio 4.8 (1-3.5); Glucose 65 mg/dl (74-100); HDL Cholesterol 37 mg/dl (40-60); Total Protein,Serum 6.2 g/dl (6.3-8.2)
[2023-06-10 11:37] LABS: Direct LDL Cholesterol 109.38 mg/dL (100-129)
[2023-06-10 11:41] LABS: Free T4 (Free Thyroxine) 1.16 ng/dl (0.78-2.19)
[2023-06-10 11:55] LABS: Thyroid Stimulating Hormone 1.43 uIU/mL (0.465-4.68)
== END 2023-06-10 23:59 ==
LOC: LAB 10:24
PROVIDERS: PCP Family Medicine; Visit Provider Internal Medicine
DX: I10 Essential (primary) hypertension (principal); I11.9 Hypertensive heart disease without heart failure; I25.10 Atherosclerotic heart disease of native coronary artery without angina pectoris; R94.31 Abnormal electrocardiogram [ECG] [EKG]; Z95.5 Presence of coronary angioplasty implant and graft; R06.00 Dyspnea, unspecified; E11.9 Type 2 diabetes mellitus without complications; I63.9 Cerebral infarction, unspecified
CPT/HCPCS: 36415; 80048; 80061; 80076; 84439; 84443; 85025

== ENCOUNTER 2023-07-04 11:12 | Outpatient (CLI) | payer MEDICARE, SELFPAY ==
--- NOTE | 2023-07-04 11:18 | CT_ITS ---
FINAL REPORT CLINICAL HISTORY: seziure like activity after recent heart stent placement COMPARISON: None FINDINGS: Axial images of the head were obtained without contrast. Coronal and sagittal reformatted images were also obtained. This study was performed with techniques to keep radiation doses as low as reasonably achievable (ALARA). Individualized dose reduction techniques using automated exposure control or adjustment of mA and/or kV according to the patient's size were employed. Periventricular low-attenuation areas are seen consistent with mild chronic ischemic changes. There are several small bilateral chronic lacunar infarcts noted, more prominent on the right than on the left. There is no evidence of intracranial hemorrhage or mass. There is no evidence of acute infarct. There is no evidence of shift of the midline structures. No skull abnormality is seen on the bone window images. IMPRESSION: Mild periventricular chronic ischemic changes. Several small bilateral chronic lacunar infarcts, more prominent on the right than the left. No acute intracranial abnormality identified. Reviewed, Interpreted and Dictated by Compa Gaytan III, MD Transcribed by Milagros Busch Authenticated and [facility]
== END 2023-07-04 23:59 ==
LOC: RAD 11:14
PROVIDERS: PCP Family Medicine; Visit Provider Nurse Practitioner Family
DX: R06.00 Dyspnea, unspecified; R60.9 Edema, unspecified; R94.31 Abnormal electrocardiogram [ECG] [EKG]; Z95.5 Presence of coronary angioplasty implant and graft; G40.89 Other seizures; I20.89 Other forms of angina pectoris
CPT/HCPCS: 70450